=== PATIENT | male | born 1995 | race African-American/Black ===

== ENCOUNTER 2017-06-08 17:53 | Emergency (ER) | payer OTHER ==
[~2017-06-08] VITALS: Ht 170.2 cm; Wt 66.0 kg
[2017-06-08 19:25] VITALS: BP 137/84
== END 2017-06-08 19:41 | disposition home or self-care (01) ==
LOC: EMS 17:55
DX: S01.01XA Laceration without foreign body of scalp, initial encounter (principal); S13.4XXA Sprain of ligaments of cervical spine, initial encounter; V43.52XA Car driver injured in collision with other type car in traffic accident, initial encounter; Y93.89 Activity, other specified; Y92.488 Other paved roadways as the place of occurrence of the external cause; Y99.8 Other external cause status
CPT/HCPCS: 12001; 99283

== ENCOUNTER 2017-06-15 17:55 | Emergency (ER) | payer OTHER ==
[~2017-06-15] VITALS: Ht 170.2 cm; Wt 77.3 kg
[2017-06-15 19:07] VITALS: BP 116/77
== END 2017-06-15 19:57 | disposition home or self-care (01) ==
LOC: EMS 17:56
DX: S01.01XD Laceration without foreign body of scalp, subsequent encounter (principal); X58.XXXD Exposure to other specified factors, subsequent encounter
CPT/HCPCS: 99281

== ENCOUNTER 2020-04-13 00:11 | Emergency (ER) | payer SELFPAY ==
[~2020-04-13] VITALS: Ht 170.2 cm; Wt 63.6 kg
[2020-04-13 01:24] VITALS: BP 121/89
[2020-04-13] MEDS ORDERED: ACETAMINOPHEN 500 MG TABLET PO ONE (01:45)
[2020-04-13] MEDS ORDERED: GuaiFENesin/D-METHORPHAN [SUGAR-FREE] 200-20MG/10 ML SYRUP UDCUP PO ONE (01:45)
[2020-04-13 02:03] LABS: COVID AG,FIA SOURCE NASOPHARYNGEAL
== END 2020-04-13 03:12 | disposition short-term general hospital (02) ==
LOC: EMS 00:12
DX: J40 Bronchitis, not specified as acute or chronic (principal); Z20.822 Contact with and (suspected) exposure to COVID-19; F17.210 Nicotine dependence, cigarettes, uncomplicated; F12.90 Cannabis use, unspecified, uncomplicated
CPT/HCPCS: 87426; 99284; 71045-TC